=== PATIENT | male | born 1960 | race Caucasian/White ===

== ENCOUNTER 2018-12-17 16:44 | Observation (INO) | payer OTHER ==
[2018-12-17] MEDS ORDERED: AMPICILLIN-SULBACTAM 3 GM in SODIUM CHLORIDE 0.9% 100 ML IVPB STA (19:02)
[2018-12-17 20:10] LABS: Basophils # (A) 0.1 k/uL (0-0.2); Basophils % (A) 1 %; Eosinophils # (A) 0.3 k/uL (0-0.7); Eosinophils % (A) 5 %; HCT 46.9 % (39.0-53.0); HGB 14.3 gm/dL (13.0-17.5); Lymphocytes # (A) 2.4 k/uL (1.0-4.8); Lymphocytes % (A) 37 %; MCH 28.4 pg (25.0-35.0); MCHC 30.5 g/dL (31.0-37.0); MCV 93.3 fL (80.0-100.0); Monocytes # (A) 0.6 k/uL (0-1.0); Monocytes % (A) 10 %; Neutrophils # (A) 2.8 k/uL (1.3-7.7); Neutrophils % (A) 44 %; Platelet Count 369 k/uL (150-450); RBC 5.03 m/uL (4.30-5.90); RDW 13.5 % (11.5-15.5); WBC 6.4 k/uL (3.8-10.6)
[2018-12-17 20:17] LABS: Calcium 9.3 mg/dL (8.4-10.2); Potassium 4.4 mmol/L (3.5-5.1)
--- NOTE | 2018-12-17 20:45 | ED ---
General Adult HPI - General Chief complaint: Skin/Abscess/Foreign Body Stated complaint: Cat bite hand swollen Time Seen by Provider: 12/17/18 18:42 Source: patient Mode of arrival: ambulatory Limitations: no limitations - History of Present Illness Initial comments: 58-year-old male presenting with left swollen hand. Patient states he was bitten by a stray cat yesterday. He presented the emergency department was started on Augmentin. He the hand became more swollen and had purulent drainage from it. Denies any fevers or chills. - Related Data Home Medications Medication Instructions Recorded Confirmed Loratadine 10 mg PO DAILY 12/16/18 12/17/18 DULoxetine HCL [Cymbalta] 30 mg PO DAILY 12/17/18 12/17/18 Montelukast [Singulair] 10 mg PO DAILY 12/17/18 12/17/18 sulfaSALAzine [Azulfidine] 500 mg PO DAILY 12/17/18 12/17/18 Allergies Allergy/AdvReac Type Severity Reaction Status Date / Time No Known Allergies Allergy Verified 12/17/18 21:15 Review of Systems ROS Statement: Those systems with pertinent positive or pertinent negative responses have been documented in the HPI. Review of Systems Constitutional: Denies fever, chills Eyes: Denies change in vision, Denies pain Ears, nose, mouth, throat: Denies headaches, Denies sore throat Cardiovascular: Denies chest pain. Denies palpitations Respiratory: Denies shortness of breath, Denies cough Gastrointestinal: Denies abdominal pain. Denies nausea, vomiting, diarrhea. Genitourinary: Denies hematuria, Denies infections Musculoskeletal: Denies pain, Denies swelling Integumentary: Positive wound and swelling Neurological: Denies headache, focal weakness, focal numbness Psychiatric: Denies anxiety, Denies depression Hematologic/Lymphatic: Denies easy bleeding or bruising ROS Other: All systems not noted in ROS Statement are negative. Past Medical History Past Medical History: Asthma Additional Past Medical History / Comment(s): ulcerative colitis History of Any Multi-Drug Resistant Organisms: None Reported Past Surgical History: Hernia Repair, Orthopedic Surgery Additional Past Surgical History / Comment(s): rt knee arthroscopic Past Anesthesia/Blood Transfusion Reactions: No Reported Reaction Past Psychological History: No Psychological Hx Reported Smoking Status: Never smoker Past Alcohol Use History: Occasional Past Drug Use History: None Reported - Past Family History Mother Family Medical History: No Reported History Father Family Medical History: No Reported History General Exam - General Exam Comments Initial Comments: General: Awake, alert, No acute Distress HENT: Normocephalic. Atraumatic Eyes: PERRL. EOMI. No scleral icterus. No injected conjunctiva Neck: Full ROM Chest/Lungs: Clear to auscultation bilaterally. No wheezing, rhonchi, or rales Cardiac: Regular rate, rhythm. No murmurs or rubs Abdomen/GI: Soft, nontender, nondistended. No rebound, guarding, or rigidity. Musculoskeletal: Full ROM. Swelling to left hand without decreased range of motion. No tenderness along the flexor or extensor tendons. Skin: Warm, dry, intact. Erythema to the left hand with swelling. Two wounds without purulent drainage. Neurologic: A/Ox3, no weakness, no sensory deficit, no abnormal gait, no coordination deficit Limitations: no limitations Course Vital Signs 12/17/18 12/17/18 12/17/18 17:13 19:30 21:26 Temperature 99.1 F 98.3 F 98.2 F Pulse Rate 95 60 60 Respiratory 116 H 15 16 Rate Blood Pressure 151/83 152/90 135/86 O2 Sat by Pulse 98 96 96 Oximetry 12/17/18 22:23 Temperature 97.8 F Pulse Rate 70 Respiratory 16 Rate Blood Pressure 131/94 O2 Sat by Pulse 98 Oximetry Procedures - Procedures Initial comment: Ring removal from left ring finger: Patient's wedding ring unable to be removed secondary to his swelling. He was agreeable to me cutting it off as I was unable to remove it with lubricant. Raptor scissors used with complete removal. Medical Decision Making - Medical Decision Making 58-year-old male presenting with left hand swelling. Initial exam the patient is awake, alert, no acute distress. Vital signs are stable. Patient's respiratory rate was initially entered is 115 but was an error. Patient requires IV abx for failed outpatient therapy. His wedding ring had to be cut off secon kong to his hand swelling. He was started on Unasyn. No evidence of sepsis. I spoke with Dr. Gu who was agreeable to admission with orthopedics on consult. - Lab Data Result diagrams: 12/17/18 19:25 12/17/18 19:25 Lab Results 12/17/18 12/17/18 12/17/18 Range/Units 19:25 19:25 19:25 WBC 6.4 (3.8-10.6) k/uL RBC 5.03 (4.30-5.90) m/uL Hgb 14.3 (13.0-17.5) gm/dL Hct 46.9 (39.0-53.0) % MCV 93.3 (80.0-100.0) fL MCH 28.4 (25.0-35.0) pg MCHC 30.5 L (31.0-37.0) g/dL RDW 13.5 (11.5-15.5) % Plt Count 369 (150-450) k/uL Neutrophils % 44 % Lymphocytes % 37 % Monocytes % 10 % Eosinophils % 5 % Basophils % 1 % Neutrophils # 2.8 (1.3-7.7) k/uL Lymphocytes # 2.4 (1.0-4.8) k/uL Monocytes # 0.6 (0-1.0) k/uL Eosinophils # 0.3 (0-0.7) k/uL Basophils # 0.1 (0-0.2) k/uL Sodium 140 (137-145) mmol/L Potassium 4.4 (3.5-5.1) mmol/L Chloride 105 (98-107) mmol/L Carbon Dioxide 25 (22-30) mmol/L Anion Gap 10 mmol/L BUN 16 (9-20) mg/dL Creatinine 1.29 H (0.66-1.25) mg/dL Est GFR (CKD-EPI)AfAm 71 (>60 ml/min/1.73 sqM) Est GFR (CKD-EPI)NonAf 62 (>60 ml/min/1.73 sqM) Glucose 81 (74-99) mg/dL Plasma Lactic Acid Chepe 0.8 (0.7-2.0) mmol/L Calcium 9.3 (8.4-10.2) mg/dL Disposition Clinical Impression: Cat bite involving extremity, Pasteurella cellulitis due to cat bite Disposition: ADMITTED IP TO [facility] Decision to Admit Reason: Admit from EC Decision Date: 12/17/18 Decision Time: 20:45
[2018-12-17] MEDS ORDERED: ONDANSETRON 4 MG/2 ML VIAL IVP PRN (21:08)
[2018-12-17] MEDS ORDERED: NALOXONE 0.4 MG/ML 1 ML VIAL IV PRN (21:08)
[2018-12-17] MEDS ORDERED: ACETAMINOPHEN TAB 325 MG TAB PO PRN (21:08)
[2018-12-17] MEDS ORDERED: KETOROLAC 30 MG/ML 1 ML VIAL IVP PRN (21:08)
--- NOTE | 2018-12-17 21:09 | XR ---
EXAMINATION TYPE: XR hand limited LT DATE OF EXAM: 12/17/2018 COMPARISON: NONE HISTORY: 58-year-old male with pain after cat bite 2 days ago TECHNIQUE: 2 views FINDINGS: No retained radiopaque foreign body. Some dorsal soft tissue swelling is noted about the hand. No acu te fracture, subluxation, or dislocation. IMPRESSION: Some dorsal soft tissue swelling. No acute osseous abnormality seen. No retained radiopaque foreign b bereket.
[2018-12-17 23:25] VITALS: BMI 28.4
[2018-12-17] MEDS: SODIUM CHLORIDE 0.9% 1,000 ML IV SCH (23:27)
[2018-12-18] MEDS: AMPICILLIN-SULBACTAM 3 GM in SODIUM CHLORIDE 0.9% 50 ML IVPB SCH ×4 (00:23→18:58)
--- NOTE | 2018-12-18 07:53 | P.CNOR ---
History of Present Illness - [facility] Consult date: 12/18/18 Consult reason: other (cat bite) History of present illness: Mr. Amin is a pleasant 58-year-old right-hand dominant male who was admitted to the ER for treatment of a cat bite to his left hand. He states he was trying to get a straight cat out of a vacant apartment and got scratched and bit on the left hand. He was initially seen in the ER on 12/16/2018 and given a dose of Augmentin. He returned yesterday when the pain and swelling worsened. He reports a small amount of purulent drainage just prior to admission when the swelling was more significant. He denies fever, chills or feeling sick. He states the pain and swelling have improved significantly since starting the IV antibiotics. Past medical history is significant for colitis, well-controlled with medication. He denies diabetes, cardiovascular disease or kidney disease and he does not smoke. Past Medical History Past Medical History: Asthma Additional Past Medical History / Comment(s): ulcerative colitis History of Any Multi-Drug Resistant Organisms: None Reported Past Surgical History: Hernia Repair, Orthopedic Surgery Additional Past Surgical History / Comment(s): rt knee arthroscopic Past Anesthesia/Blood Transfusion Reactions: No Reported Reaction Past Psychological History: No Psychological Hx Reported Smoking Status: Never smoker Past Alcohol Use History: Occasional Past Drug Use History: None Reported - Past Family History Mother Family Medical History: No Reported History Father Family Medical History: No Reported History Medications and Allergies Home Medications Medication Instructions Recorded Confirmed Type Loratadine 10 mg PO DAILY 12/16/18 12/17/18 History DULoxetine HCL [Cymbalta] 30 mg PO DAILY 12/17/18 12/17/18 History Montelukast [Singulair] 10 mg PO DAILY 12/17/18 12/17/18 History sulfaSALAzine [Azulfidine] 500 mg PO DAILY 12/17/18 12/17/18 History Allergies Allergy/AdvReac Type Severity Reaction Status Date / Time No Known Allergies Allergy Verified 12/17/18 21:15 Physical Examination Examination of the left hand reveals to transverse closed wounds on the dorsal aspect of the hand overlying the mid shafts of the second and fourth metacarpals. These are approximately 5 mm in length each, with mild erythema immediately adjacent to the wound, appropriate for the stage of healing. The dorsal hand is diffusely edematous, extending approximately 5 cm proximal to the radiocarpal joint. A skin marker has been used to outline, what is presumed to be, an area of previous erythema; however no significant erythema is present around the dorsum of the hand. This is minimally tender to palpation. There is no discrete subcutaneous crepitus, fluctuance or focal fluid collection. He is able to make a full, tight composite fist without pulp to palm deficit and can actively extend fully without evidence of pain. Light touch sensation is subjectively intact throughout the distal radial, median and ulnar nerve di stributions without focal deficit. The hand is warm, dry and well perfused with brisk capillary refill. There is no pain with active or passive motion of the wrist or MCP joints. No palpable lymphadenopathy in the left upper extremity. Results X-ray left hand: Mild, diffuse dorsal soft tissue swelling without appreciable subcutaneous air or retained foreign bodies. No acute osseous pathology. - Labs Labs: Abnormal Lab Results - Last 24 Hours (Table) 12/17/18 12/17/18 Range/Units 19:25 19:25 MCHC 30.5 L (31.0-37.0) g/dL Creatinine 1.29 H (0.66-1.25) mg/dL H & H 12/17/18 Range/Units 19:25 Hgb 14.3 (13.0-17.5) gm/dL Hct 46.9 (39.0-53.0) % Result Diagrams: 12/17/18 19:25 12/17/18 19:25 Assessment and Plan Assessment: Left hand cat bite (1) Cat bite of left hand Current Visit: Yes Status: Acute Code(s): S61.452A - OPEN BITE OF LEFT HAND, INITIAL ENCOUNTER; W55.01XA - BITTEN BY CAT, INITIAL ENCOUNTER SNOMED Code(s): 949208217 Plan: I reviewed the clinical findings with Mr. Amin. I explained that cat bite injuries to the hands are frequently treated surgically with early presentations. Based on the appearance of the hand today and his response to IV antibiotics, I recommended a brief period of continued observation. We will keep him NPO for now and continue the IV Unasyn. I will recheck him this afternoon and, if the hand is clinically worse, we will proceed with operative surgical debridement; however, I suspect this will be unnecessary. I encouraged him to continue elevation but ice should not be applied. He should continue active range of motion of the fingers hand and wrist and may use hand as tole rated. Joao Adhikari D.O. [facility]
[2018-12-18] MEDS: LORATADINE 10 MG TAB PO SCH (08:30)
[2018-12-18] MEDS: MONTELUKAST 5 MG CHEWABLE PO SCH (08:50)
[2018-12-18] MEDS ORDERED: ADVAIR INHALATION SCH (09:00)
[2018-12-18 09:44] LABS: Basophils # (A) 0.1 k/uL (0-0.2); Basophils % (A) 2 %; Eosinophils # (A) 0.2 k/uL (0-0.7); Eosinophils % (A) 6 %; HCT 44.6 % (39.0-53.0); HGB 14.3 gm/dL (13.0-17.5); Lymphocytes # (A) 1.8 k/uL (1.0-4.8); Lymphocytes % (A) 44 %; MCV 93.7 fL (80.0-100.0); Mean Platelet Volume 7.4; Monocytes # (A) 0.3 k/uL (0-1.0); Monocytes % (A) 8 %; Neutrophils # (A) 1.5 k/uL (1.3-7.7); Neutrophils % (A) 38 %; Platelet Count 358 k/uL (150-450); RBC 4.76 m/uL (4.30-5.90); RDW 13.7 % (11.5-15.5)
[2018-12-18 09:52] LABS: Anion Gap 6 mmol/L; Blood Urea Nitrogen 13 mg/dL (9-20); Calcium 8.7 mg/dL (8.4-10.2); Carbon Dioxide 24 mmol/L (22-30); Chloride 110 mmol/L (98-107); Glucose 92 mg/dL (74-99); Potassium 4.6 mmol/L (3.5-5.1); Sodium 140 mmol/L (137-145)
--- NOTE | 2018-12-18 10:10 | P.HPIM ---
History of Present Illness H&P Date: 12/18/18 Chief Complaint: Infected cat Bite The patient is a 58 her white male well-known to me. He was bit by a stray cat on 12/16/2018. He presented emergency room received a dose of rabies vaccine. He also was started on Augmentin. He reports that later on that evening and the following day his left dorsal hand, at the bite became more erythematous. He proceeded back to emergency room. He is been started on Unasyn and is admitted for continued IV antibiotics. He denies any chest pains, pressures, shortness breath, nausea or vomiting. He has a past medical history for ulcerative colitis, depression, seasonal allergy disorder, and asthma. Review of Systems All systems: negative Past Medical History Past Medical History: Asthma Additional Past Medical History / Comment(s): ulcerative colitis History of Any Multi-Drug Resistant Organisms: None Reported Past Surgical History: Hernia Repair, Orthopedic Surgery Additional Past Surgical History / Comment(s): rt knee arthroscopic Past Anesthesia/Blood Transfusion Reactions: No Reported Reaction Past Psychological History: No Psychological Hx Reported Smoking Status: Never smoker Past Alcohol Use History: Occasional Past Drug Use History: None Reported - Past Family History Mother Family Medical History: No Reported History Father Family Medical History: No Reported History Medications and Allergies Home Medications Medication Instructions Recorded Confirmed Type Loratadine 10 mg PO DAILY 12/16/18 12/17/18 History DULoxetine HCL [Cymbalta] 30 mg PO DAILY 12/17/18 12/17/18 History Montelukast [Singulair] 10 mg PO DAILY 12/17/18 12/17/18 History sulfaSALAzine [Azulfidine] 500 mg PO DAILY 12/17/18 12/17/18 History Allergies Allergy/AdvReac Type Severity Reaction Status Date / Time No Known Allergies Allergy Verified 12/17/18 21:15 Physical Exam Vitals: Vital Signs Temp Pulse Pulse Resp BP BP Pulse Ox 12/18/18 07:49 98 F 55 L 16 115/73 95 12/18/18 01:46 97.5 F L 63 15 112/70 97 12/17/18 22:43 97.9 F 61 15 155/89 98 12/17/18 22:39 97.9 F 61 15 155/89 98 12/17/18 22:23 97.8 F 70 16 131/94 98 12/17/18 21:26 98.2 F 60 16 135/86 96 12/17/18 19:30 98.3 F 60 15 152/90 96 12/17/18 17:13 99.1 F 95 116 H 151/83 98 Intake and Output 12/17/18 12/18/18 12/18/18 22:59 06:59 14:59 Intake Total 1080 670 400 Balance 1080 670 400 Intake: Intake, IV Titration 130 Amount Ampicillin-Sulbactam 3 gm 50 In Sodium Chloride 0.9% 50 ml @ 100 mls/hr IVPB Q6H [facility] Rx#:[id number] Sodium Chloride 0.9% 1, 80 000 ml @ 20 mls/hr IV . Q24H [facility] Rx#:[id number] Oral 1080 540 400 Other: Voiding Method Toilet Toilet # Voids 1 Weight 92.4 kg GENERAL: Well-appearing, well-nourished and in no acute distress. HEAD: Atraumatic, normocephalic. EYES: Pupils equal round and reactive to light, extraocular movements intact, sclera anicteric, conjunctiva are normal. ENT:nares patent, oropharynx clear without exudates. Moist mucous membranes. NECK: Normal range of motion, supple without lymphadenopathy or JVD, no thyromegaly LUNGS: Breath sounds clear to auscultation bilaterally and equal. No wheezes rales or rhonchi. HEART: Regular rate and rhythm without murmurs, rubs or gallops.S1S2 Normal ABDOMEN: Soft, nontender, normoactive bowel sounds. No guarding, no rebound. No masses appreciated. EXTREMITIES: Normal range of motion, no pitting or edema. No clubbing or cyanosis. NEUROLOGICAL: Cranial nerves II through XII grossly intact. Normal speech, normal gait. PSYCH: Normal mood, normal affect. SKIN: Warm, Dry, normal turgor, 2 puncture martinez to the left dorsal hand consistent with Bite. There is minimal if any erythema noted. There are a Markings on his right dorsal forearm approximately 10 cm from the plates indicating a previous area of erythema, since resolved. Results CBC & Chem 7: 12/18/18 09:24 12/18/18 09:24 Labs: Abnormal Lab Results - Last 24 Hours (Table) 12/17/18 12/17/18 12/18/18 Range/Units 19:25 19:25 09:24 MCHC 30.5 L (31.0-37.0) g/dL Chloride 110 H (98-107) mmol/L Creatinine 1.29 H (0.66-1.25) mg/dL Thrombosis Risk Factor Assmnt - DVT/VTE Prophylaxis DVT/VTE Prophylaxis: Low risk, early ambulation encouraged - Choose All That Apply Any of the Below Risk Factors Present?: Yes Each Factor Represents 1 point: Age 41-60 years Other Risk Factors: No Other congenital or acquired thrombophilia - If yes, enter type in comment: No Thrombosis Risk Factor Assessment Total Risk Factor Score: 1 Thrombosis Risk Factor Assessment Level: Low Risk Assessment and Plan (1) Pasteurella cellulitis due to cat bite Current Visit: Yes Status: Acute Code(s): A28.0 - PASTEURELLOSIS; W55.01XA - BITTEN BY CAT, INITIAL ENCOUNTER SNOMED Code(s): 656158935 (2) Asthma Current Visit: Yes Status: Acute Code(s): J45.909 - UNSPECIFIED ASTHMA, UNCOMPLICATED SNOMED Code(s): 948946677 (3) Ulcerative (chronic) ileocolitis Current Visit: No Status: Acute Code(s): K51.00 - ULCERATIVE (CHRONIC) PANCOLITIS WITHOUT COMPLICATIONS SNOMED Code(s): 86021667 (4) Cat bite involving extremity Current Visit: Yes Status: Acute Code(s): LCX2737 - SNOMED Code(s): 154586218 (5) Cat bite of left hand Current Visit: Yes Status: Acute Code(s): S61.452A - OPEN BITE OF LEFT HAND, INITIAL ENCOUNTER; W55.01XA - BITTEN BY CAT, INITIAL ENCOUNTER SNOMED Code(s): 547029762 Plan: Patient indicates he had a culture, however not agreeable to be located in the computer. I'll consult ID as he is currently on Unasyn, he is improving, but need to confirm Augmentin would be the preferred drug of choice after he started taken several doses and not responded. He may benefit from azithromycin as well. Consult orthopedics for possible incision and drainage of the puncture wounds. His wound does continue to improve. At this point we'll place Silvadene cream and a wrap overlying it once or throat was reevaluated. He'll be reevaluated next 24 hours I'll continue his home medications. Repeat labs in a.m.
[2018-12-18] MEDS: sulfaSALAzine 500 MG TAB PO SCH (10:14)
[2018-12-18] MEDS: DULoxetine HCL 30 MG CAPSULE.DR PO SCH (10:14)
--- NOTE | 2018-12-18 14:03 | P.PN ---
Subjective Progress Note Date: 12/18/18 The patient reports continued improvement in pain and swelling. States the hand is moving easier. Minimal pain at rest. Only mild pain with full flexion of fingers or wrist. Objective - Vital Signs Vital signs: Vital Signs Temp 98 F 12/18/18 07:49 Pulse 55 L 12/18/18 07:49 Resp 16 12/18/18 07:49 BP 115/73 12/18/18 07:49 Pulse Ox 95 12/18/18 07:49 Intake & Output 12/17/18 12/18/18 12/18/18 18:59 06:59 18:59 Intake Total 1750 400 Balance 1750 400 Weight 88.451 kg 92.4 kg Intake: Intake, IV Titration 130 Amount Ampicillin-Sulbactam 3 gm 50 In Sodium Chloride 0.9% 50 ml @ 100 mls/hr IVPB Q6H [facility] Rx#:[id number] Sodium Chloride 0.9% 1, 80 000 ml @ 20 mls/hr IV . Q24H [facility] Rx#:[id number] Oral 1620 400 Other: Voiding Method Toilet Toilet # Voids 1 - Exam Noticeable improvement in edema on dorsum of hand, even in just 6 hours. Dorsal subcutaneous tissue around wounds still mildly indurated but less edematous. No erythema. No drainage. No subcu crepitus. Minimal TTP. Only mild discomfort with full, active wrist and digital flexion. No pain with PROM of wrist or MCP jts. - Labs CBC & Chem 7: 12/18/18 09:24 12/18/18 09:24 Labs: Abnormal Lab Results - Last 24 Hours (Table) 12/17/18 12/17/18 12/18/18 Range/Units 19:25 19:25 09:24 MCHC 30.5 L (31.0-37.0) g/dL Chloride 110 H (98-107) mmol/L Creatinine 1.29 H (0.66-1.25) mg/dL Assessment and Plan Assessment: Left hand cat bite with improving cellulitis (1) Cat bite of left hand Current Visit: Yes Status: Acute Code(s): S61.452A - OPEN BITE OF LEFT HAND, INITIAL ENCOUNTER; W55.01XA - BITTEN BY CAT, INITIAL ENCOUNTER SNOMED Code(s): 166175829 Plan: Mr. Amin shows continued clinical improvement. No evidence of focal abscess or suppurative tenosynovitis. No surgery planned - pt may resume a normal diet. Continue unasyn - recommend at least another 12 hours of IV abx. ID eval pending - will defer to Dr. Koo regarding the final antibiotic treatment plan. Based on clinical appearance of the hand, I anticipate DC home tomorrow. Encourage hand/digital ROM and activity as tolerated. If hand continues to improve, no formal outpatient follow up required. I encouraged him to schedule a reevaluation appointment if symptoms worsen or fail to resolve. Joao Adhikari D.O. [facility]
[2018-12-18 20:16] VITALS: RESP 15
[2018-12-18] MEDS: SODIUM CHLORIDE 0.9% 1,000 ML IV SCH (20:56)
[2018-12-18] MEDS ORDERED: [UNRECOGNIZED DRUG - OTHER] PO SCH (21:00)
--- NOTE | 2018-12-18 23:40 | P.CONS ---
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 He attempted to remove the cat when it bit him onto his left hand. The area was cleansed but her rapidly became swollen and erythematous and painful and consequently presented to the emergency center. The site was cleansed and he was placed on Augmentin. He received his first rabies vaccination given that the animal could not be collected. The patient again presented to the emergency center on 12/17/2018 with inc reasing pain and swelling erythema to the left hand with ascending erythema. Low-grade fever was likely occurring and was noticed to have some leukocytosis. Because of this he was admitted and the surgical consultation and infectious diseases evaluation are requested. The patient has shown rapid improvement with intravenous antibiotic therapy of Unasyn and surgery has not planned any surgical intervention. The patient is denying high-grade fevers, chills or rigors and is noticing some improving function to the hand are ready. No other acute difficulties, has some loose stool with the Unasyn but has baseline colitis. Review of Systems HEENT:Denies headache or acute visual change. Denies sinus or mouth discomforts. Denies neck stiffness or pain. Denies significant oral cavity pain. Denies difficulty on swallowing. Lungs: Denies significant shortness of breath, cough, sputum production, or hemoptysis. Cardiovascular: Denies significant shortness of breath, chest pain, chest wall pain, orthopnea, dyspnea on exertion, syncope Gastrointestinal:Denies nausea, vomiting, or constipation, no hematemesis, melena, hematochezia. has colitis and has some baseline loose stool slightly worsened since being on antibiotic therapy Musculoskeletal: denies significant myalgias or arthralgias. No new joint swelling. Denies new back pain. Skin: pain and swelling to the left hand as per the HPI Neuro: Denies headache or visual change. Denies any new onset weakness or difficulty with ambulation. Denies falls or seizures. Psychiatric:Denies anxiety or depression. Endocrine: Denies significant fatigue, denies significant weight loss or weight gain. 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 No tobacco use. No significant alcohol abuse. No recreat ional drug use. No pets in the home. Exposure to the stray cat. No international travel Smoking Status: Never smoker Past Alcohol Use History: Occasional Past Drug Use History: None Reported - Past Family History Mother Family Medical History: No Reported History Father Family Medical History: No Reported History Medications and Allergies Home Medications and Allergies Comment(s): Current Medications Acetaminophen (Tylenol Tab) 650 mg PO Q6HR PRN PRN Reason: Mild Pain or Fever > 100.5 Duloxetine HCl (Cymbalta) 30 mg PO DAILY [facility] Last Admin: 12/18/18 10:14 Dose: 30 mg Documented by: Ampicillin Sodium/Sulbactam (Sodium 3 gm/ Sodium Chloride) 50 mls @ 100 mls/hr IVPB Q6H [facility] Stop: 12/19/18 02:59 Last Admin: 12/18/18 18:58 Dose: 100 mls/hr Documented by: Sodium Chloride (Saline 0.9%) 1,000 mls @ 20 mls/hr IV .Q24H [facility] Last Admin: 12/18/18 20:56 Dose: Not Given Documented by: Ampicillin Sodium/Sulbactam (Sodium 3 gm/ Sodium Chloride) 100 mls @ 100 mls/hr IVPB Q6H [facility] Ketorolac Tromethamine (Toradol) 15 mg IVP Q6HR PRN PRN Reason: Moderate Pain Stop: 12/22/18 21:09 Loratadine (Claritin) 10 mg PO DAILY [facility] Last Admin: 12/18/18 08:30 Dose: 10 mg Documented by: Montelukast Sodium (Singulair Chew) 5 mg PO DAILY [facility] Last Admin: 12/18/18 08:50 Dose: 5 mg Documented by: Naloxone HCl (Narcan) 0.2 mg IV Q2M PRN PRN Reason: Opioid Reversal Ondansetron HCl (Zofran) 4 mg IVP Q8HR PRN PRN Reason: Nausea And Vomiting Sulfasalazine (Azulfidine) 500 mg PO DAILY [facility] Last Admin: 12/18/18 10:14 Dose: 500 mg Documented by: Home Medications Medication Instructions Recorded Confirmed Type Loratadine 10 mg PO DAILY 12/16/18 12/17/18 History DULoxetine HCL [Cymbalta] 30 mg PO DAILY 12/17/18 12/17/18 History Montelukast [Singulair] 10 mg PO DAILY 12/17/18 12/17/18 History sulfaSALAzine [Azulfidine] 500 mg PO DAILY 12/17/18 12/17/18 History Allergies Allergy/AdvReac Type Severity Reaction Status Date / Time No Known Allergies Allergy Verified 12/17/18 21:15 Physical Exam Vitals: Vital Signs Temp Pulse Resp BP Pulse Ox 12/18/18 19:19 98.7 F 68 15 127/82 95 12/18/18 14:01 98.7 F 58 L 16 136/79 96 12/18/18 07:49 98 F 55 L 16 115/73 95 12/18/18 01:46 97.5 F L 63 15 112/70 97 Intake and Output 12/18/18 12/18/18 12/19/18 14:59 22:59 06:59 Intake Total 400 540 Balance 400 540 Intake: Oral 400 540 Other: Voiding Method Toilet # Voids 1 1 58-year-old male, no hardeep distress HEENT: Anicteric conjunctiva are pink and moist nasal mucosa grossly intact without significant lesions, there is no thrush. Neck: The neck is supple without significant lymphadenopathy or thyromegaly. Lungs: Good bilateral air entry without significant crackles or wheezing. There is no significant bronchial sounds. There is no egophony or dullness. Heart: Regular rate and rhythm with an audible S1-S2, no S3 no S4. There is no significant murmur click or rub, PMI was nondisplaced. Abdomen: Positive bowel sounds soft and nontender without palpable masses or organomegaly. There was no guarding or rebound. Extremities: The right hand is without acute abnormalities. Left hand shows evidence of some residual swelling. The biceps and cells have no expressible purulence. The ascending erythema is improving. There is no significant epitrochlear or axillary lymphadenopathy. No Other abnormal lymph nodes are noted.The lower extremities are free from significant edema. The peripheral pulses were 2+ and symmetric. Neuro: Awake alert oriented to person place and time. There are no acute new gross focal sensory motor deficits. Results CBC & Chem 7: 12/18/18 09:24 12/18/18 09:24 Labs: Abnormal Lab Results - Last 24 Hours (Table) 12/18/18 Range/Units 09:24 Chloride 110 H (98-107) mmol/L Microbiology - Last 24 Hours (Table) 12/17/18 19:25 Blood Culture - Preliminary Blood No Growth after 24 hours Laboratory Results WBC 4.0 k/uL (3.8-10.6) 12/18/18 09:24 RBC 4.76 m/uL (4.30-5.90) 12/18/18 09:24 Hgb 14.3 gm/dL (13.0-17.5) 12/18/18 09:24 Hct 44.6 % (39.0-53.0) 12/18/18 09:24 MCV 93.7 fL (80.0-100.0) 12/18/18 09:24 MCH 30.0 pg (25.0-35.0) 12/18/18 09:24 MCHC 32.0 g/dL (31.0-37.0) 12/18/18 09:24 RDW 13.7 % (11.5-15.5) 12/18/18 09:24 Plt Count 358 k/uL (150-450) 12/18/18 09:24 Neutrophils % 38 % 12/18/18 09:24 Lymphocytes % 44 % 12/18/18 09:24 Monocytes % 8 % 12/18/18 09:24 Eosinophils % 6 % 12/18/18 09:24 Basophils % 2 % 12/18/18 09:24 Neutrophils # 1.5 k/uL (1.3-7.7) 12/18/18 09:24 Lymphocytes # 1.8 k/uL (1.0-4.8) 12/18/18 09:24 Monocytes # 0.3 k/uL (0-1.0) 12/18/18 09:24 Eosinophils # 0.2 k/uL (0-0.7) 12/18/18 09:24 Basophils # 0.1 k/uL (0-0.2) 12/18/18 09:24 Sodium 140 mmol/L (137-145) 12/18/18 09:24 Potassium 4.6 mmol/L (3.5-5.1) 12/18/18 09:24 Chloride 110 mmol/L (98-107) H 12/18/18 09:24 Carbon Dioxide 24 mmol/L (22-30) 12/18/18 09:24 Anion Gap 6 mmol/L 12/18/18 09:24 BUN 13 mg/dL (9-20) 12/18/18 09:24 Creatinine 0.86 mg/dL (0.66-1.25) 12/18/18 09:24 Est GFR (CKD-EPI)AfAm >90 (>60 ml/min/1.73 sqM) 12/18/18 09:24 Est GFR (CKD-EPI)NonAf >90 (>60 ml/min/1.73 sqM) 12/18/18 09:24 Glucose 92 mg/dL (74-99) 12/18/18 09:24 Plasma Lactic Acid Chepe 0.8 mmol/L (0.7-2.0) 12/17/18 19:25 Calcium 8.7 mg/dL (8.4-10.2) 12/18/18 09:24 Microbiology 12/17/18 19:25 Blood Blood Culture - Preliminary No Growth after 24 hours Assessment and Plan (1) Cat bite of left hand Narrative/Plan: 58-year-old male presents to Hospital with significant worsening to pain and swelling erythema to his left hand that occurred after the cat bite. It is noted the cat was an unknown animal, it was in an apartment that they were working on, when he attempted to remove the cat bit him. It is not an animal that can be found. Consequently it is prudent that he started rabies vaccination in the course should be completed. Per schedule next dose is likely due tomorrow. The patient is showing an excellent response to intravenous antibiotic therapy with Unasyn. It is likely the patient needed this therapy to allow improvement, x-rays failed to show foreign body or deep infection. Clinically the patient does not have any tendosynovitis and does not need surgical intervention is noted by the orthopedic hand surgeon. Patient likely ready for discharge home tomorrow to complete his course of Augmentin for the cat bite. We'll have to work with discharge planning to ensure he has his rabies vaccination schedule continued in the outpatient [facility]. Current Visit: Yes Status: Acute Code(s): S61.452A - OPEN BITE OF LEFT HAND, INITIAL ENCOUNTER; W55.01XA - BITTEN BY CAT, INITIAL ENCOUNTER SNOMED Code(s): 376983868 (2) Failure of outpatient treatment Current Visit: Yes Status: Acute Code(s): Z78.9 - OTHER SPECIFIED HEALTH STATUS SNOMED Code(s): 482349589
[2018-12-19] MEDS: AMPICILLIN-SULBACTAM 3 GM in SODIUM CHLORIDE 0.9% 50 ML IVPB SCH (00:14)
[2018-12-19 00:53] VITALS: TEMP 97.8
[2018-12-19] MEDS ORDERED: AMPICILLIN-SULBACTAM 3 GM in SODIUM CHLORIDE 0.9% 100 ML IVPB SCH (07:00)
[2018-12-19 08:24] LABS: Anion Gap 7 mmol/L; Blood Urea Nitrogen 13 mg/dL (9-20); Calcium 8.8 mg/dL (8.4-10.2); Carbon Dioxide 25 mmol/L (22-30); Chloride 108 mmol/L (98-107); Glucose 97 mg/dL (74-99); Potassium 4.5 mmol/L (3.5-5.1); Sodium 140 mmol/L (137-145)
[2018-12-19 08:25] LABS: Basophils # (A) 0.1 k/uL (0-0.2); Basophils % (A) 2 %; Eosinophils # (A) 0.4 k/uL (0-0.7); Eosinophils % (A) 8 %; HCT 46.4 % (39.0-53.0); HGB 14.7 gm/dL (13.0-17.5); Hypochromasia Slight; Lymphocytes # (A) 1.6 k/uL (1.0-4.8); Lymphocytes % (A) 35 %; MCH 29.7 pg (25.0-35.0); MCHC 31.7 g/dL (31.0-37.0); MCV 93.6 fL (80.0-100.0); Mean Platelet Volume 7.4; Monocytes # (A) 0.3 k/uL (0-1.0); Monocytes % (A) 7 %; Neutrophils # (A) 2.1 k/uL (1.3-7.7); Neutrophils % (A) 46 %; Platelet Count 353 k/uL (150-450); RBC 4.96 m/uL (4.30-5.90); RDW 13.8 % (11.5-15.5); WBC 4.6 k/uL (3.8-10.6)
[2018-12-19] MEDS: sulfaSALAzine 500 MG TAB PO SCH (08:39)
[2018-12-19] MEDS: LORATADINE 10 MG TAB PO SCH (08:39)
[2018-12-19] MEDS: DULoxetine HCL 30 MG CAPSULE.DR PO SCH (08:39)
[2018-12-19] MEDS: MONTELUKAST 5 MG CHEWABLE PO SCH (08:39)
[2018-12-19 08:47] VITALS: BP 121/76; PULSE 62
--- NOTE | 2018-12-19 09:26 | P.DS ---
Providers Date of admission: 12/17/18 21:12 Expected date of discharge: 12/19/18 Attending physician: Santi Gu Consults: 12/17/18 21:09 Consult Physician Routine Consulting Provider: Joao Adhikari Consult Reason/Comments: Cat scratch fever Do you want consulting provider notified?: Yes 12/18/18 09:25 Consult Physician Routine Consulting Provider: Austin Koo Reason/Comments: cat bite Do you want consulting provider notified?: Yes Primary care physician: Santi Gu - Discharge Diagnosis(es) (1) Pasteurella cellulitis due to cat bite Current Visit: Yes Status: Acute (2) Cat bite of left hand Current Visit: Yes Status: Acute (3) Asthma Current Visit: Yes Status: Acute (4) Ulcerative (chronic) ileocolitis Current Visit: No Status: Acute (5) Need for rabies vaccination Current Visit: Yes Status: Acute Hospital Course: The patient is a 58 her white male well-known to me. He was bit by a stray cat on 12/16/2018. He presented emergency room received a dose of rabies vaccine. He also was started on Augmentin. He reports that later on that evening and the following day his left dorsal hand, at the bite became more erythematous. He proceeded back to emergency room. He is been started on Unasyn and is admitted for continued IV antibiotics. He denies any chest pains, pressures, shortness breath, nausea or vomiting. He has a past medical history for ulcerative colitis, depression, seasonal allergy disorder, and asthma. 12/19/2018: All right patient's hand continue to improve. He has remained on Unasyn IV antibiotics. Orthopedic surgery seen him twice and does not feel he needs any surgery at this time. This because of the rapid improvement of his hand. Infectious disease is seen him. They recommended the Unasyn through today. That he restart Augmentin at discharge. The follow-up in rabies vaccine [facility]. He is cleared today for discharge. Patient Condition at Discharge: Fair Plan - Discharge Summary Discharge Rx Participant: No New Discharge Prescriptions: New Amoxicillin/Potassium Clav [Augmentin 875-125 Tablet] 1 tab PO Q12HR #14 tab Multivitamins, Thera [Multivitamin (formulary)] 1 each PO DAILY@1200 tab Montelukast Chew [Singulair] 5 mg PO DAILY chew Acetaminophen Tab [Tylenol] 650 mg PO Q6HR PRN tab PRN Reason: Mild Pain Or Fever > 100.5 Continue Loratadine 10 mg PO DAILY Montelukast [Singulair] 10 mg PO DAILY DULoxetine HCL [Cymbalta] 30 mg PO DAILY sulfaSALAzine [Azulfidine] 500 mg PO DAILY Discharge Medication List Loratadine 10 mg PO DAILY 12/16/18 [History] DULoxetine HCL [Cymbalta] 30 mg PO DAILY 12/17/18 [History] Montelukast [Singulair] 10 mg PO DAILY 12/17/18 [History] sulfaSALAzine [Azulfidine] 500 mg PO DAILY 12/17/18 [History] Acetaminophen Tab [Tylenol] 650 mg PO Q6HR PRN tab 12/19/18 [Rx] Amoxicillin/Potassium Clav [Augmentin 875-125 Tablet] 1 tab PO Q12HR #14 tab 12/19/18 [Rx] Montelukast Chew [Singulair] 5 mg PO DAILY chew 12/19/18 [Rx] Multivitamins, Thera [Multivitamin (formulary)] 1 each PO DAILY@1200 tab [Rx] Follow up Appointment(s)/Referral(s): Santi Gu MD [Primary Care Provider] - 1-2 days Ambulatory/Diagnostic Orders: Ambulatory Miscellaneous Order [MISC.AMB] Time Frame: 1 Day, Facility: [facility], Location: [facility] 3 Discharge Disposition: HOME SELF-CARE
[2018-12-19] MEDS ORDERED: MULTIVITAMINS, THERA 1 EACH TAB PO SCH (12:00)
== END 2018-12-19 12:54 | disposition home or self-care (01) ==
LOC: EC 16:44 → INTOOBSV 21:12 → 4SSUR 21:12 → UNDODISIN 12-19 12:54
PROVIDERS: ADMIT Family Medicine; ATTEND Family Medicine
PROC: 3E0234Z Introduction of Serum, Toxoid and Vaccine into Muscle, Percutaneous Approach (ICD-10-PCS; principal; 2018-12-17)
DX: L03.114 Cellulitis of left upper limb (principal); A28.0 Pasteurellosis; K51.00 Ulcerative (chronic) pancolitis without complications; J45.909 Unspecified asthma, uncomplicated; F32.9 Major depressive disorder, single episode, unspecified; S61.452A Open bite of left hand, initial encounter; W55.01XA Bitten by cat, initial encounter; Z20.3 Contact with and (suspected) exposure to rabies; Z23 Encounter for immunization; Z79.899 Other long term (current) drug therapy
CPT/HCPCS: 96366 ×2; 96365; 99284; 36415; 80048 ×3; 83605; 85025 ×3; 87040; 73120; G0378 ×3; J0295 ×4

== ENCOUNTER → 2019-02-21 | Outpatient (CLI) | payer OTHER ==
[2019-02-21 10:26] LABS: Basophils # (A) 0.1 k/uL (0-0.2); Basophils % (A) 1 %; Eosinophils % (A) 16 %; HCT 41.8 % (39.0-53.0); HGB 13.4 gm/dL (13.0-17.5); Hypochromasia Slight; Lymphocytes # (A) 1.8 k/uL (1.0-4.8); Lymphocytes % (A) 15 %; MCH 29.6 pg (25.0-35.0); MCV 92.4 fL (80.0-100.0); Mean Platelet Volume 6.9; Monocytes # (A) 0.6 k/uL (0-1.0); Monocytes % (A) 5 %; Neutrophils # (A) 7.5 k/uL (1.3-7.7); Neutrophils % (A) 61 %; Platelet Count 568 k/uL (150-450); RBC 4.52 m/uL (4.30-5.90); WBC 12.3 k/uL (3.8-10.6)
[2019-02-21 16:37] LABS: Albumin 4.3 g/dL (3.80-4.90); Albumin/Globulin Ratio 1.95 (1.60-3.17); Anion Gap 8.8 mmol/L (4.00-12.00); Calcium 9.3 mg/dL (8.7-10.3); Carbon Dioxide 27.2 mmol/L (21.6-31.8); Globulin 2.2 g/dL (1.6-3.3); LDL Cholesterol,Calculated 85.8 mg/dL (0.0-131.0); Potassium 4.6 mmol/L (3.5-5.5); Total Bilirubin 0.4 mg/dL (0.2-1.2); Total Protein 6.5 g/dL (6.2-8.2); VLDL Calculation 23.2 mg/dL (5.00-40.00)
[2019-02-21 16:44] LABS: T4, Free (Free Thyroxine) 1.1 ng/dL (0.80-1.80)
== END ==
LOC: LABWHC1 09:50
PROVIDERS: ATTEND Family Medicine
DX: K51.90 Ulcerative colitis, unspecified, without complications (principal); R01.1 Cardiac murmur, unspecified; R10.32 Left lower quadrant pain
CPT/HCPCS: 36415; 80053; 80061; 84439; 84443; 85025

== ENCOUNTER → 2019-06-11 | Outpatient (CLI) | payer OTHER ==
--- NOTE | 2019-06-12 08:44 | XR ---
Lumbosacral spine HISTORY: Back pain 5 views of the lumbosacral spine Lumbar vertebral bodies show preserved height and bone mineralization. Minimal retrolisthesis grade 1 L4-5. Sclerosis present in the posterior elements of the lower lumbar spine. There is loss of disc h eight L4-5 and L5-S1, there is multilevel spondylosis. No evident spondylolysis. Some sclerosis noted at the sacroiliac joints noted incidentally. IMPRESSION: Degenerative disc disease and facet arthropathy. There may be some sacroiliitis change.
== END | disposition home or self-care (01) ==
LOC: RADXRMAIN 17:01
PROVIDERS: ATTEND Family Medicine
DX: M51.36 Other intervertebral disc degeneration, lumbar region (principal); M46.96 Unspecified inflammatory spondylopathy, lumbar region
CPT/HCPCS: 72110

== ENCOUNTER → 2019-09-24 | Day surgery (SDC) | payer OTHER ==
[2019-09-21 09:18] VITALS: BMI 27.8
[~2019-09-24] MED LIST: LACTATED RINGERS 1,000 ML IV SCH; LIDOCAINE 1% 20 ML VIAL (10MG/ML) FOR IV START INTRADERMA ONE; MIDAZOLAM 2 MG/2 ML VIAL ONE; PROPOFOL 10 MG/ML 20 ML VIAL IV ONE; fentaNYL (PF) 50 MCG/ML 2 ML AMP ONE
[2019-09-24 10:22] VITALS: TEMP 97.9
--- NOTE | 2019-09-24 11:44 | P.PCN ---
Date of Procedure: 09/24/19 Description of Procedure: BRIEF HISTORY: Patient is a 59-year-old male presenting for outpatient colonoscopy given a history of ulcerative colitis. 20 year history of ulcerative colitis well controlled the recent years without prior complications or surgery. Patient has been on therapy with 5 ASA medications with good control of symptoms. He did have flare in 01/2019 treated with suppositories and prednisone therapy. Currently he reports bowel movements are back to baseline with no abdominal pain, blood per rectum or signs or symptoms of active disease. PROCEDURE PERFORMED: Colonoscopy with biopsy. PREOPERATIVE DIAGNOSIS: Ulcerative colitis. ESTIMATED BLOOD LOSS: Minimal. IV sedation per Anesthesia. PROCEDURE: After informed consent was obtained, the patient, was brought into the endoscopy unit. IV sedation was administered by Anesthesia under continuous monitoring. Digital rectal examination was normal. Initially the Olympus CF-190 flexible video colonoscope was then inserted in the rectum, gradually advanced into the cecum without any difficulty. Careful examination was performed as the scope was gradually being withdrawn. Ileocecal valve and the appendiceal orifice were visualized and appeared normal. Prep was excellent. Mucosa of the cecum, asc ending colon, transverse colon, descending colon, sigmoid colon, and rectum appeared grossly normal with only some mild patchy erythema in the cecum and rectum suggestive of mild ulcerative colitis and some decreased vascular markings throughout the colon. Random biopsies were taken of the cecum, ascending colon, transverse colon, descending colon, sigmoid colon and rectum. Retroflexion was performed in the rectum and no lesions were seen. The patient tolerated the procedure well. IMPRESSION: Mild erythema in the rectum and cecum consistent with history of mild ulcerative colitis. Random biopsies of the cecum, ascending colon, transverse colon, descending colon, sigmoid colon and rectum. RECOMMENDATIONS: Findings of this examination were discussed with the patient . Okay to re sume diet. Okay to resume medications. Await pathology from biopsies. Follow up in GI clinic as previously scheduled.
[2019-09-24 11:55] VITALS: BP 137/69; PULSE 67; RESP 17
== END ==
LOC: ORWHC2ENDO 09:56
PROVIDERS: ATTEND Internal Medicine
DX: K51.90 Ulcerative colitis, unspecified, without complications (principal); J45.909 Unspecified asthma, uncomplicated; F39 Unspecified mood [affective] disorder; Z79.51 Long term (current) use of inhaled steroids; Z79.899 Other long term (current) drug therapy; Z98.890 Other specified postprocedural states
CPT/HCPCS: 88305; 45380; J2250; J3010; J2704

== ENCOUNTER 2020-03-12 23:04 | Emergency (ER) | payer OTHER ==
[2020-03-12 23:21] VITALS: BP 142/86; PULSE 80; RESP 18; TEMP 98.1
[2020-03-12] MEDS ORDERED: PROPARACAINE 0.5% OPHTH DROPS 15 ML BTL RIGHT EYE STA (23:50)
[2020-03-13] MEDS ORDERED: FLUORESCEIN STRIPS 1 MG STRIP RIGHT EYE ONE (00:21)
[2020-03-13] MEDS ORDERED: TOBRAMYCIN 0.3% OPHTH DROPS 5 ML BTL RIGHT EYE STA (00:46)
--- NOTE | 2020-03-13 00:46 | ED ---
Eye Problem HPI - General Chief complaint: Eye Problems Stated complaint: FB in eye Time Seen by Provider: 03/12/20 23:20 Source: patient, RN notes reviewed, old records reviewed Mode of arrival: ambulatory Limitations: no limitations - History of Present Illness Initial comments: This is a 59-year-old male DF for evaluation patient has foreign body and I he was doing some still complaining of some still working at home no glasses. History of prior foreign bodies eye pain is severe symptoms 12 hours has drain is no purulent drainage with no vision changes. Patient does not wear contacts. Patient has no again no vision changes is complaining of pain in the right MD chief complaint: eye pain, eye redness, eye injury, foreign body -: hour(s) Onset Description: sudden Location: right eye If Injury: direct trauma, occurred while hammering/grinding Severity: moderate Severity scale (1-10): 4 If Pain, Quality: burning Consistency: constant Associated Symptoms: none Treatments Prior to Arrival: none - Related Data Home Medications Medication Instructions Recorded Confirmed Loratadine 10 mg PO DAILY 12/16/18 09/24/19 DULoxetine HCL [Cymbalta] 30 mg PO DAILY 12/17/18 09/24/19 Montelukast [Singulair] 10 mg PO DAILY 12/17/18 09/24/19 sulfaSALAzine [Azulfidine] 500 mg PO DAILY 12/17/18 09/24/19 Fluticasone/Salmeterol [Advair 1 each IH DAILY PRN 09/21/19 09/24/19 250-50 Diskus] Previous Rx's Medication Instructions Recorded Acetaminophen Tab [Tylenol] 650 mg PO Q6HR PRN tab 12/19/18 Allergies Allergy/AdvReac Type Severity Reaction Status Date / Time No Known Allergies Allergy Verified 03/12/20 23:21 Review of Systems ROS Statement: Those systems with pertinent positive or pertinent negative responses have been documented in the HPI. ROS Other: All systems not noted in ROS Statement are negative. Past Medical History Past Medical History: Asthma Additional Past Medical History / Comment(s): ulcerative colitis-recent flare up now resolved History of Any Multi-Drug Resistant Organisms: None Reported Past Surgical History: Hernia Repair, Orthopedic Surgery Additional Past Surgical History / Comment(s): rt knee arthroscopic Past Anesthesia/Blood Transfusion Reactions: No Reported Reaction Past Psychological History: No Psychological Hx Reported Smoking Status: Never smoker Past Alcohol Use History: Occasional Past Drug Use History: None Reported - Past Family History Mother Family Medical History: No Reported History Father Family Medical History: No Reported History General Exam Limitations: no limitations General appearance: alert, in no apparent distress Head exam: Present: atraumatic, normocephalic, normal inspection Eye exam: Present: normal appearance, PERRL, EOMI, other (Form body noted in right eye 6:00). Absent: scleral icterus, conjunctival injection, periorbital swelling ENT exam: Present: normal exam, mucous membranes moist Neck exam: Present: normal inspection. Absent: tenderness, meningismus, lymphadenopathy Respiratory exam: Present: normal lung sounds bilaterally. Absent: respiratory distress, wheezes, rales, rhonchi, stridor Cardiovascular Exam: Present: regular rate, normal rhythm, normal heart sounds. Absent: systolic murmur, diastolic murmur, rubs, gallop, clicks GI/Abdominal exam: Present: soft, normal bowel sounds. Absent: distended, tenderness, guarding, rebound, rigid Extremities exam: Present: normal inspection, full ROM, normal capillary refill. Absent: tenderness, pedal edema, joint swelling, calf tenderness Back exam: Present: normal inspection Neurological exam: Present: alert, oriented X3, CN II-XII intact Psychiatric exam: Present: normal affect, normal mood Skin exam: Present: warm, dry, intact, normal color. Absent: rash Course Vital Signs 03/12/20 23:16 Temperature 98.1 F Pulse Rate 80 Respiratory 18 Rate Blood Pressure 142/86 O2 Sat by Pulse 95 Oximetry - Reevaluation(s) Reevaluation #1: Medical record is reviewed Patient pain control with analgesic topical They will remove most of foreign body not all patient given antibiotics and follow-up with ophthalmology patient with foreign body still exists Procedures - Forgein Body Removal Eye Site: Right Anesthetic Used: Proparacaine Eye Exam Technique: Elias Lamp Foreign Body Suspected: Metal Forgein Body Removal Technique: Cotton Swab, Irrigation, Needle Remaining Debris: Yes Patient Tolerated: well Medical Decision Making - Medical Decision Making 39 male DF for evaluation positive or S4 body 6 o'clock position also foreign body is removed unable to remove entire foreign body patient will follow-up with ophthalmology for continued removal Disposition Clinical Impression: Foreign body of right eye Disposition: HOME SELF-CARE Condition: Good Instructions (If sedation given, give patient instructions): Eye Foreign Body (ED) Is patient prescribed a controlled substance at d/c from ED?: No Referrals: Gerard Olea MD [STAFF PHYSICIAN] - 1-2 days
== END 2020-03-13 01:05 | disposition home or self-care (01) ==
LOC: EC 23:04
DX: T15.91XA Foreign body on external eye, part unspecified, right eye, initial encounter (principal); J45.909 Unspecified asthma, uncomplicated; Z79.899 Other long term (current) drug therapy; Y93.89 Activity, other specified; Y92.009 Unspecified place in unspecified non-institutional (private) residence as the place of occurrence of the external cause
CPT/HCPCS: 65205; 99283

== ENCOUNTER → 2020-04-01 | Outpatient (CLI) | payer OTHER ==
[2020-04-01 09:16] LABS: HGB 13.8 gm/dL (13.0-17.5); Hypochromasia Moderate; MCH 28.9 pg (25.0-35.0); MCV 90.5 fL (80.0-100.0); Mean Platelet Volume 7.2; Platelet Count 405 k/uL (150-450); RBC 4.75 m/uL (4.30-5.90); RDW 15.9 % (11.5-15.5); WBC 6.4 k/uL (3.8-10.6)
[2020-04-01 17:19] LABS: African American GFR (CKD) 96.4 (60.0-200.0); Albumin 4.3 g/dL (3.80-4.90); Albumin/Globulin Ratio 1.79 (1.60-3.17); Anion Gap 6.9 mmol/L (4.00-12.00); C Reactive Protein 2.8 mg/dL (0.0-0.8); Carbon Dioxide 27.1 mmol/L (21.6-31.8); Folate, Serum 11.1 ng/mL; Globulin 2.4 g/dL (1.6-3.3); Non-African American GFR(CKD) 83.2 (60.0-200.0); Potassium 4.4 mmol/L (3.5-5.5); Total Bilirubin 0.4 mg/dL (0.3-1.2); Total Protein 6.7 g/dL (6.2-8.2)
[2020-04-01 18:10] LABS: Erythrocyte Sedimentation Rate 7 mm/Hr (0-20)
== END | disposition home or self-care (01) ==
LOC: LABWHC1 07:59
PROVIDERS: ATTEND Internal Medicine
DX: K51.90 Ulcerative colitis, unspecified, without complications (principal)
CPT/HCPCS: 36415; 80053; 82306; 82607; 82746; 85027; 85652; 86140

== ENCOUNTER 2022-08-27 11:30 | Day surgery (SDC) | payer OTHER ==
[2022-08-25 13:37] VITALS: BMI 26.4
[~2022-08-27 11:30] MED LIST changes: -LIDOCAINE 1% 20 ML VIAL (10MG/ML) FOR IV START INTRADERMA ONE; -MIDAZOLAM 2 MG/2 ML VIAL ONE; -PROPOFOL 10 MG/ML 20 ML VIAL IV ONE; -fentaNYL (PF) 50 MCG/ML 2 ML AMP ONE
[2022-08-27 13:02] VITALS: TEMP 98.6
[2022-08-27] MEDS ORDERED: PROPOFOL 10 MG/ML 20 ML VIAL IV ONE (13:56)
--- NOTE | 2022-08-27 14:12 | P.PCN ---
Date of Procedure: 08/27/22 Procedure(s) Performed: BRIEF HISTORY: Patient is a 62-year-old pleasant male scheduled for an elective colonoscopy as a part of screening for colon cancer/long-standing history of ulcerative colitis diagnosed several years ago. His last colonoscopy was in August 2019 and was within normal limits. PROCEDURE PERFORMED: Colonoscopy with random biopsies. PREOPERATIVE DIAGNOSIS: Screening for colon cancer/history of ulcerative. IV sedation per Anesthesia. PROCEDURE: After informed consent was obtained, the patient, was brought into the endoscopy unit. IV sedation was administered by Anesthesia under continuous monitoring. Digital rectal examination was normal. Initially the Olympus CF-160 flexible video colonoscope was then inserted in the rectum, gradually advanced into the cecum without any difficulty. Careful examination was performed as the scope was gradually being withdrawn. Ileocecal valve and the appendiceal orifice were visualized and appeared normal. Prep was excellent. Mucosa of the cecum, ascending colon, transverse colon, descending colon, sigmoid colon, and rectum appeared normal. Random biopsies were done from the cecum to rectum at every 10 cm into well to rule out dysplasia. Retroflexion was performed in the rectum and no lesions were seen. The patient tolerated the procedure well. IMPRESSION: Normal-appearing colon from rectum to cecum with no erythema of colitis or colorectal neoplasia. RECOMMENDATIONS: Findings of this examination were discussed with the patient as well as his family. He was advised to follow with the biopsy results. If the biopsy does not show any evidence of dysplasia he can have a repeat colonoscopy in 3 years.
[2022-08-27 14:30] VITALS: BP 119/77; PULSE 61; RESP 16
== END 2022-08-27 14:45 | disposition home or self-care (01) ==
LOC: ORWHC2ENDO 11:30
PROVIDERS: ATTEND Internal Medicine Gastroenterology
DX: Z12.11 Encounter for screening for malignant neoplasm of colon (principal); K51.90 Ulcerative colitis, unspecified, without complications; J45.909 Unspecified asthma, uncomplicated; F32.A Depression, unspecified; Z79.899 Other long term (current) drug therapy; Z98.890 Other specified postprocedural states
CPT/HCPCS: 45380; J2704; 88305

== ENCOUNTER 2024-05-14 04:18 | Emergency (ER) | payer OTHER ==
[2024-05-14] MEDS ORDERED: BENZONATATE 100 MG CAP PO ONE (06:33)
[2024-05-14] MEDS ORDERED: methylPREDNISolone SOD SUCCI 125 MG/2 ML VIAL ONE (06:33)
[2024-05-14] MEDS ORDERED: IPRATROPIUM-ALBUTEROL 3 ML NEB ONE (06:34)
--- NOTE | 2024-06-12 08:36 | XR ---
EXAMINATION TYPE: XR chest 2V DATE OF EXAM: 06/12/2024 6:59 AM CLINICAL INDICATION: Male, 63 years old with history of AVERY COUGH DONE; [facility] COMPARISON: Chest radiographs from 05/14/2024 TECHNIQUE: XR chest 2V Frontal view of the chest. FINDINGS: Lungs/Pleura: There is no evidence of pleural effusion, focal consolidation, or pneumothorax. Pulmonary vascularity: Unremarkable. Heart/mediastinum: Cardiomediastinal silhouette is unremarkable. Musculoskeletal: No acute osseous pathology. IMPRESSION: No acute cardiopulmonary disease/process. [facility] Shahab Suarez, , 06/12/2024 8:33 AM
== END 2024-05-14 09:40 | disposition home or self-care (01) ==
LOC: EC 04:18
DX: J45.901 Unspecified asthma with (acute) exacerbation (principal)
CPT/HCPCS: 71046; 94640; 96372; 99284